=== PATIENT | male | born 1945 | race Caucasian/White ===

== ENCOUNTER → 2018-11-20 | Outpatient (CLI) | payer OTHER ==
[~2018-11-20] MED LIST: IOHEXOL-350 75 ML VIAL IV ONE
== END | disposition home or self-care (01) ==
LOC: RAH 13:54
PROVIDERS: ATTEND Internal Medicine Hematology & Oncology
DX: C79.51 Secondary malignant neoplasm of bone (principal); C61 Malignant neoplasm of prostate; K57.30 Diverticulosis of large intestine without perforation or abscess without bleeding; M51.36 Other intervertebral disc degeneration, lumbar region
CPT/HCPCS: 74177; Q9967

== ENCOUNTER 2019-08-12 05:41 | Inpatient (IN) | payer OTHER ==
[~2019-08-12] VITALS: Ht 177.8 cm; Wt 87.3 kg
[~2019-08-12 05:41] MED LIST changes: +AMPI500C12 PO; +CARV3.12 PO; -IOHEXOL-350 75 ML VIAL IV ONE; +NAPR-1023 PO; +OMEP40CA13 PO; +ONDA8TAB65 PO; +POTA20TA82 PO
[2019-08-12 06:06] LABS: BASOPHILS % (AUTO) 0.2 % (0.0-5.0); LYMPHOCYTES % (AUTO) 8.9 % (21.0-51.0); MEAN CORPUSCULAR HEMOGLOBIN 25.1 pg (27.0-33.0); MEAN CORPUSCULAR HGB CONC 30.8 g/dL (32.0-36.0); MEAN CORPUSCULAR VOLUME 81.4 fL (79-99); MONOCYTES % (AUTO) 6.5 % (3.0-13.0); NEUTROPHILS % (AUTO) 82.6 % (40.0-77.0); PLATELET COUNT (AUTO) 282 K/uL (130-400); RED BLOOD CELL COUNT(AUTO) 2.95 MIL/uL (4.50-6.20); RED CELL DISTRIBUTION WIDTH 16.2 % (11.0-15.5); WHITE BLOOD COUNT (AUTO) 6.2 K/uL (4.8-10.8)
[2019-08-12] MEDS ORDERED: MORPHINE SULFATE 2 MG/ML 1ML SYG ONE ×2 (06:12→13:46)
[2019-08-12 06:15] LABS: CREATININE 0.5 mg/dL (0.5-1.5); POTASSIUM 3.9 mmol/L (3.5-5.1)
[2019-08-12 06:15] LABS: APPEARANCE,URINE Clear (CLEAR); BILIRUBIN,URINE Negative (NEGATIVE); COLOR,URINE Yellow (YELLOW); GLUCOSE, URINE (UA) Negative (NEGATIVE); KETONES,URINE Negative (NEGATIVE); LEUKOCYTE ESTERASE ,URINE Large (NEGATIVE); NITRATE,URINE Positive (NEGATIVE); OCCULT BLOOD,URINE Negative (NEGATIVE); PH,URINE 8.5 (5.0-8.0); PROTEIN,URINE Negative (NEGATIVE)
[2019-08-12 06:16] LABS: INR 1.19 (0.85-1.15); PARTIAL THROMBOPLASTIN TIME 34.1 SEC (26.3-35.5); PROTHROMBIN TIME 12.8 SEC (9.6-11.6)
[2019-08-12 06:28] LABS: B-TYPE NATRIURETIC PEPTIDE 583 pg/mL (0-100)
[2019-08-12 06:29] LABS: ALBUMIN 1.7 g/dL (3.5-5.0); BILIRUBIN,TOTAL 0.3 mg/dL (0.2-1.0); TOTAL PROTEIN, SERUM 5.9 g/dL (6.0-8.3)
[2019-08-12] MEDS ORDERED: IOHEXOL 350 MG/ML 100ML INFUS..BTL IV ONE (07:20)
[2019-08-12] MEDS ORDERED: MORPHINE SULFATE 5 MG/ML VIAL ONE (07:37)
[2019-08-12] MEDS: SODIUM CHLORIDE 0.9% 1000ML 1,000 ML IV SCH ×3 (07:45→23:02)
[2019-08-12] MEDS ORDERED: ONDANSETRON HCL 4 MG/2 ML VIAL IVP PRN (07:45)
[2019-08-12 07:51] LABS: RBC,URINE 0-1 /HPF (0-1); SQUAMOUS EPITHELIAL CELL,UR 0-2 /HPF (0-2)
[2019-08-12 07:52] LABS: BACTERIA,URINE Many /HPF (None Seen)
[2019-08-12] MEDS: PANTOPRAZOLE 40 MG/VIAL IVP SCH (09:00)
[2019-08-12] MEDS ORDERED: SODIUM CHLORIDE 0.9% 1000ML 1,000 ML IV ONE (11:24)
[2019-08-12 16:00] VITALS: BP 126/66
[2019-08-12] MEDS: MORPHINE SULFATE 5 MG/ML VIAL IVP PRN ×2 (16:14→22:52)
[2019-08-12 19:30] VITALS: BP 100/65
[2019-08-13] VITALS (7 sets, daily range): BP systolic 123–155; BP diastolic 61–81
[2019-08-13] MEDS: MORPHINE SULFATE 5 MG/ML VIAL IVP PRN (06:28)
[2019-08-13 06:30] LABS: BASOPHILS % (AUTO) 0.7 % (0.0-5.0); EOSINOPHILS % (AUTO) 1.1 % (0.0-8.0); HEMATOCRIT 28.2 % (42-54); LYMPHOCYTES % (AUTO) 11.7 % (21.0-51.0); MEAN CORPUSCULAR HEMOGLOBIN 24.8 pg (27.0-33.0); MEAN CORPUSCULAR HGB CONC 29.8 g/dL (32.0-36.0); MEAN CORPUSCULAR VOLUME 83.2 fL (79-99); MONOCYTES % (AUTO) 7.5 % (3.0-13.0); NEUTROPHILS % (AUTO) 77.2 % (40.0-77.0); PLATELET COUNT (AUTO) 262 K/uL (130-400); RED BLOOD CELL COUNT(AUTO) 3.39 MIL/uL (4.50-6.20); RED CELL DISTRIBUTION WIDTH 16.1 % (11.0-15.5); WHITE BLOOD COUNT (AUTO) 5.5 K/uL (4.8-10.8)
[2019-08-13 06:39] LABS: CREATININE 0.5 mg/dL (0.5-1.5); POTASSIUM 3.8 mmol/L (3.5-5.1)
[2019-08-13] MEDS ORDERED: MORPHINE SULFATE 2 MG/ML 1ML SYG ONE (08:51)
[2019-08-13] MEDS: PANTOPRAZOLE 40 MG/VIAL IVP SCH (08:54)
[2019-08-13] MEDS: SODIUM CHLORIDE 0.9% 1000ML 1,000 ML IV SCH ×2 (08:59→21:35)
[2019-08-13] MEDS ORDERED: MORPHINE SULFATE 2 MG/ML 1ML SYG IM PRN (09:00)
--- NOTE | 2019-08-13 10:21 | NUR ---
DR. BREEN PAGED PT HAVING C/P STATES IT IS NOT CARDIAC IT IS METS TO THE LIVER. ORDERS ENTER FOR PAIN MANAGEMENT.
--- NOTE | 2019-08-13 11:29 | NUR ---
INITIAL Patient was transferred from [facility]. Emergency contacts are eze, [phone] and friend, Aristeo Torres, [phone]. Patient in agreement to return to facility. YAMEL/Choice form signed and placed in chart. WILL contacted Inga Young and she stated that patient will need new authorization if he returns. WILL sent updates to nursing facility for review. Pending eval and acceptance. DCP is [facility]. Addendum: 08/13/19 at 1134 by PJ CHEEMA SS Amended: Links added.
[2019-08-13] MEDS ORDERED: MORPHINE SULFATE 15 MG TABLET.SA PO PRN (12:15)
--- NOTE | 2019-08-13 16:50 | NUR ---
1635 gave patient IM Letter but he stated "i can not sign right now". I asked if he understood the form that i was giving him and he stated"yes". Jignesh Jones witnessed IM Letter being given.I FAXED IM Letter with note: patient not able to sign, Karen (Jignesh) signed IM Letter as witness. I placed IM Letter in chart under consent tab
[2019-08-13] MEDS: MORPHINE SULFATE 15 MG TABLET.SA PO PRN (23:32)
[2019-08-14] MEDS: MORPHINE SULFATE 2 MG/ML 1ML SYG IV PRN ×5 (02:22→21:55)
[2019-08-14 03:30] VITALS: BP 156/78
[2019-08-14 08:01] VITALS: BP 140/81
[2019-08-14] MEDS: SODIUM CHLORIDE 0.9% 1000ML 1,000 ML IV SCH ×2 (09:11→19:45)
--- NOTE | 2019-08-14 09:50 | NUR ---
TRANSFER FROM 4TH FLOOR . REPORT RECIEVED BY NURSE NOEMI. Borges RN PT AAO X 3 REVIEW PLAN OF CARE, AND CALL LIGHT AND FALL RISK , PT IS ABLE TO FOCUS WITH CARE.
[2019-08-14] MEDS: PANTOPRAZOLE 40 MG/VIAL IVP SCH (10:23)
[2019-08-14 11:47] VITALS: BP 150/50
--- NOTE | 2019-08-14 14:56 | NUR ---
CM Note: HNR approval CM spoke to Milagros borja/RADHA, pt has approval. EMS arranged and faxed for today. Primary nurse to call [facility] once pt ready to DC. Primary nurse aware. CM to cont to follow up.
[2019-08-14 16:00] VITALS: BP 156/70
[2019-08-14] MEDS: MORPHINE SULFATE 15 MG TABLET.SA PO PRN ×2 (16:05→23:54)
--- NOTE | 2019-08-14 17:02 | NUR ---
WOUND CARE STAFF HERE FOR WOUND CARE ASSESSMENT AND RECOMMENDATION. PT WAS TURNED AND LOWER BACK SITE, CLEANSE WITH THE SAINE AND APPLICATION AND COVER WIT THE ALLEVYN LIFE FORM ON. WOUND PICTURES DONE,
--- NOTE | 2019-08-14 17:05 | NUR ---
[facility] CONSULT PATIENT ASSESSED REQUESTED: PATIENT PRESENTS WITH STAGE II PRESSURE ULCER TO SACRUM; [facility] RECOMMENDATIONS SUBMITTED Addendum: 08/14/19 at 1706 by RICHARD BATISTA LVN LVN W Amended: Links added.
[2019-08-14] MEDS ORDERED: HONEY 1 APPL/ML TUBE TP PRN (17:15)
--- NOTE | 2019-08-14 17:45 | NUR ---
WOUND TO THE LOWER MID BACK , A STAGE TWO [id number] RECOMMANDATION OF MEDI HONEY AND ALLEVYN DAILY ORDER MEDIHONEY FOR APPLICATION . PT HAS A WAFFLE MATTRESS AND WILL BE TURNED Q 2HRS.
[2019-08-14 19:00] VITALS: BP 127/64
--- NOTE | 2019-08-14 20:12 | NUR ---
Nursing Note Paged Dr. Rice. For pt's pain. Pending call back
[2019-08-14 23:00] VITALS: BP 132/64
[2019-08-15] MEDS: SODIUM CHLORIDE 0.9% 1000ML 1,000 ML IV SCH ×2 (00:03→20:54)
[2019-08-15] MEDS: MORPHINE SULFATE 2 MG/ML 1ML SYG IV PRN ×5 (01:56→23:14)
[2019-08-15 03:00] VITALS: BP 141/65
[2019-08-15 07:30] VITALS: BP 130/64
[2019-08-15] MEDS: MORPHINE SULFATE 15 MG TABLET.SA PO PRN (08:49)
[2019-08-15] MEDS: PANTOPRAZOLE 40 MG/VIAL IVP SCH (08:50)
[2019-08-15 11:00] VITALS: BP 130/66
[2019-08-15] MEDS: IPRATROPIUM/ALBUTEROL SULFATE 3 ML SOLUTION IH PRN ×2 (11:10→18:50)
[2019-08-15] MEDS: ACETAMINOPHEN 325 MG TAB PO PRN (11:21)
[2019-08-15] MEDS: MORPHINE SULFATE 15 MG TABLET.SA PO SCH ×2 (12:26→20:05)
[2019-08-15 16:00] VITALS: BP 120/64
[2019-08-15 19:42] VITALS: BP 128/67
--- NOTE | 2019-08-15 21:30 | NUR ---
Nursing Note Pt being turned q2hrs
--- NOTE | 2019-08-15 23:00 | NUR ---
Nursing Note Pt refused to be turned at this time. Pt stating he is comfortable, doesn't want to be moved.
[2019-08-15 23:30] VITALS: BP 143/74
--- NOTE | 2019-08-16 00:30 | NUR ---
Nursing Note Pt is asleep. no complaints of pain or discomfort.
--- NOTE | 2019-08-16 02:15 | NUR ---
Nursing Note Pt resting comfortable, no complaints or concerns
--- NOTE | 2019-08-16 03:30 | NUR ---
Nursing Note Pt refused for us to turn him, informed him of the importance but he doesn't want to be moved.
[2019-08-16 03:59] VITALS: BP 169/77
--- NOTE | 2019-08-16 04:00 | NUR ---
Nursing Note Pt refused to swallow pill at this time pt only wants IV pain medications.
[2019-08-16] MEDS: MORPHINE SULFATE 2 MG/ML 1ML SYG IV PRN ×4 (04:02→20:55)
--- NOTE | 2019-08-16 06:04 | NUR ---
Nursing Note-Pt pain Pt refused to take the MS contin tablets, tried to reposition the pt but he refused to let me adjust him and nurse Lesley RN. Witnessed by Lesley RN to take pain medication even though pt states he is in pain and refuses to be readjusted. pt only wants IV medication but I informed the pt that he only has the MS contin to take at this time, I can't give him IV medication at this time. Pt stated "I want to be given something through the IV to knock me out, Call Dr. Felix and tell him now or call the ER doctor and tell them to give me something to knock me out now." Paged Dr. Liu-Pending call back
--- NOTE | 2019-08-16 06:34 | NUR ---
Nursing Note- Paged . Pt stating he is having chest pain radiating down both arms, and his legs and he doesn't want to be left alone. Pending call back.
[2019-08-16] MEDS: IPRATROPIUM/ALBUTEROL SULFATE 3 ML SOLUTION IH PRN ×2 (06:42→12:28)
[2019-08-16] MEDS: MORPHINE SULFATE 15 MG TABLET.SA PO SCH ×2 (07:28→16:25)
[2019-08-16 07:30] VITALS: BP 156/80
--- NOTE | 2019-08-16 08:00 | NUR ---
PT HAVING PAIN , AND REVIEW HIS PAIN MEDICATIONS WITH HIM,, PT . WAS ABLE TO FOCUS , HIS CARE PT HAS A WAFFLE MATTRESS , AND REVIEW THE TURNING CARE, PT STATED THAT FOR NOW , HE IS MOVING, UNTIL THE PAIN MEDICATION IS SOLVE .
[2019-08-16] MEDS: PANTOPRAZOLE SODIUM 40 MG TABLET.DR PO SCH (08:15)
[2019-08-16] MEDS: LEVOFLOXACIN 500 MG TABLET PO SCH (08:17)
--- NOTE | 2019-08-16 09:06 | NUR ---
DR. VILLANUEVA CALLED AND UDPATE OF PT . ANXIETY , AND PAIN MANGEMENT DURING THE NITE , UPDATE OF HIS PAIN STATUS . MORHPHINE 2 MG IV , GIVEN . PT IS AWARE OF PAIN MED IV GIVEN PAIN SCORE OF 8, GET HIGHTER WHEN MOVED ,, PT.PAIN SCORE 10 AND HIGHER WHEN MOVE STATED THAT HE IS NOT TO BE MOVED UNTIL HIS PAIN SCORE GETS BETTER , REVIEW PLAN OF CARE ,AND CALL LIGHT IN [facility].
[2019-08-16 11:00] VITALS: BP 175/78
--- NOTE | 2019-08-16 11:50 | NUR ---
DR. VILLANUEVA HERE . AND REVIEW PT STATUS AND TRASFER DISCHAARGE REPORT MEDICATION . PLACES IN THE , FOR MEDICATION SUMMARY WHILE PT WAS AT [facility] IN [place], [place]
[2019-08-16] MEDS: KETOROLAC TROMETHAMINE 30MG/ML IV PRN (12:55)
[2019-08-16] MEDS ORDERED: ABIR250T PO (13:00)
[2019-08-16] MEDS ORDERED: IBUP-2076 PO (13:00)
[2019-08-16] MEDS ORDERED: HYDR-4068 PO (13:00)
[2019-08-16] MEDS ORDERED: PRED5TAB PO (13:00)
[2019-08-16] MEDS ORDERED: MULT-1192 PO (13:00)
[2019-08-16] MEDS ORDERED: ALPR0.5T PO (13:00)
[2019-08-16] MEDS ORDERED: ZINC PO (13:00)
[2019-08-16] MEDS ORDERED: ASCO500T20 PO (13:00)
[2019-08-16] MEDS ORDERED: DOCU100T PO (13:00)
[2019-08-16] MEDS ORDERED: CLON0.1T PO ×2 (13:00)
[2019-08-16] MEDS ORDERED: SERT50TA PO (13:00)
[2019-08-16] MEDS ORDERED: LACT10SO9 PO (13:00)
[2019-08-16] MEDS ORDERED: IPRA3AMP24 IH (13:00)
[2019-08-16 13:21] LABS: HEMATOCRIT 30.3 % (42-54); MEAN CORPUSCULAR HEMOGLOBIN 25.2 pg (27.0-33.0); MEAN CORPUSCULAR HGB CONC 30.7 g/dL (32.0-36.0); MEAN CORPUSCULAR VOLUME 82.1 fL (79-99); PLATELET COUNT (AUTO) 249 K/uL (130-400); RED BLOOD CELL COUNT(AUTO) 3.69 MIL/uL (4.50-6.20); RED CELL DISTRIBUTION WIDTH 15.9 % (11.0-15.5); WHITE BLOOD COUNT (AUTO) 8.3 K/uL (4.8-10.8)
[2019-08-16] MEDS ORDERED: GUAI100S13 PO (13:21)
[2019-08-16] MEDS ORDERED: ONDA-104 PO (13:21)
[2019-08-16] MEDS ORDERED: ACET-2247 PO (13:21)
[2019-08-16] MEDS ORDERED: FAMO20TA8 PO (13:21)
[2019-08-16] MEDS ORDERED: IBUP-2784 PO (13:21)
[2019-08-16] MEDS ORDERED: CLONIDINE HCL 0.1 MG TABLET PO PRN (13:30)
[2019-08-16] MEDS ORDERED: ACETAMINOPHEN 325 MG TAB PO PRN (13:30)
[2019-08-16] MEDS ORDERED: ONDANSETRON 4 MG TABLET PO PRN (13:30)
[2019-08-16] MEDS ORDERED: GUAIFENESIN SUGAR-FREE 100 MG/5 ML UDCUP PO PRN (13:30)
[2019-08-16] MEDS ORDERED: LACTULOSE 20 GM/30 ML UDCUP PO PRN (13:30)
[2019-08-16] MEDS ORDERED: HYDROCODONE/ACETAMINOPHEN 10/325 MG TAB PO PRN (13:30)
[2019-08-16] MEDS ORDERED: IBUPROFEN 400 MG TABLET PO PRN (13:30)
[2019-08-16] MEDS ORDERED: IPRATROPIUM/ALBUTEROL SULFATE 3 ML SOLUTION IH SCH (14:00)
[2019-08-16 14:02] LABS: EOSINOPHILS % (MANUAL) 1 % (1-6); LYMPHOCYTES % (MANUAL) 6 % (22-44); MONOCYTES % (MANUAL) 4 % (2-9); SEGMENTED NEUTROPHILS % 89 % (40-70)
[2019-08-16 14:04] LABS: MAN.DIFF COMMENT-IMPRESSION MANUAL DIFFERENTIAL
[2019-08-16 14:05] LABS: PLATELET MORPHOLOGY COMMENT ADEQUATE
[2019-08-16 16:00] VITALS: BP 119/59
--- NOTE | 2019-08-16 16:00 | NUR ---
PT DOING BETTER , STATED THAT HE FEELS BETTER WITH THE TORADOL MEDICATION THAT WAS STARTED
[2019-08-16] MEDS: IPRATROPIUM/ALBUTEROL SULFATE 3 ML SOLUTION IH SCH ×2 (19:01→23:50)
[2019-08-16] MEDS: SODIUM CHLORIDE 0.9% 1000ML 1,000 ML IV SCH ×2 (19:06→21:45)
[2019-08-16 20:00] VITALS: BP 109/60
[2019-08-16] MEDS: PREDNISONE 5 MG TABLET PO SCH (20:53)
[2019-08-16] MEDS: CLONIDINE HCL 0.1 MG TABLET PO SCH (21:00)
[2019-08-17] VITALS: BP 102/50
[2019-08-17] MEDS: MORPHINE SULFATE 15 MG TABLET.SA PO SCH ×3 (02:29→16:55)
--- NOTE | 2019-08-17 02:33 | NUR ---
PT REFUSED LACTULOSE
[2019-08-17 03:49] VITALS: BP 113/55
[2019-08-17] MEDS: KETOROLAC TROMETHAMINE 30MG/ML IV PRN ×2 (05:56→13:06)
[2019-08-17] MEDS: IPRATROPIUM/ALBUTEROL SULFATE 3 ML SOLUTION IH SCH ×4 (06:38→23:55)
[2019-08-17] MEDS: ABIRATERONE ACETATE 250 MG PO SCH (07:30)
[2019-08-17] MEDS: SODIUM CHLORIDE 0.9% 1000ML 1,000 ML IV SCH ×3 (07:45→21:50)
[2019-08-17 08:32] VITALS: BP 120/51
[2019-08-17] MEDS: CLONIDINE HCL 0.1 MG TABLET PO SCH (09:00)
[2019-08-17] MEDS: PANTOPRAZOLE SODIUM 40 MG TABLET.DR PO SCH (09:35)
[2019-08-17] MEDS: FAMOTIDINE 20MG TAB 20 MG TAB PO SCH (09:35)
[2019-08-17 11:35] VITALS: BP 133/84
[2019-08-17] MEDS: SERTRALINE HCL 50 MG TABLET PO SCH (11:55)
[2019-08-17] MEDS: LEVOFLOXACIN 500 MG TABLET PO SCH (11:55)
[2019-08-17] MEDS: PREDNISONE 5 MG TABLET PO SCH ×2 (11:55→21:48)
[2019-08-17] MEDS: MULTIVITAMIN TABLET PO SCH (11:55)
[2019-08-17] MEDS: ASCORBIC ACID 500 MG TAB PO SCH (11:55)
[2019-08-17] MEDS: ZINC SULFATE 220 CAPSULE PO SCH (11:55)
[2019-08-17] MEDS: ALPRAZOLAM 0.5 MG TABLET PO PRN ×2 (12:03→21:48)
--- NOTE | 2019-08-17 14:00 | NUR ---
cm note spoke to pt and states he had concerns regarding returning to [facility], and wanted this cm to call [facility] and [facility] regarding possible admission. call made to [facility], and per Marion, states no bed available. states they do have a bed at [facility], but per pt states he prefers [facility]. and also called [facility], and per Shana they will not accept pts at this time that came from another snf/ detention. updated pt on above information, and now states that he is willling to go to [facility], but states is in pain. call made to Marion, and states pt is approved through tuesday, and can accept him. call made to Dr Liu and made aware of above, and did give orders. updated primary nurse Sun
[2019-08-17 20:00] VITALS: BP 136/72
[2019-08-18] VITALS (7 sets, daily range): BP systolic 119–159; BP diastolic 60–83
[2019-08-18] MEDS: MORPHINE SULFATE 15 MG TABLET.SA PO SCH ×3 (00:48→16:00)
[2019-08-18] MEDS: IPRATROPIUM/ALBUTEROL SULFATE 3 ML SOLUTION IH SCH ×4 (06:34→23:25)
[2019-08-18] MEDS: ABIRATERONE ACETATE 250 MG PO SCH (07:30)
[2019-08-18] MEDS: KETOROLAC TROMETHAMINE 30MG/ML IV PRN (07:56)
[2019-08-18] MEDS: PREDNISONE 5 MG TABLET PO SCH ×2 (10:09→21:15)
[2019-08-18] MEDS: FAMOTIDINE 20MG TAB 20 MG TAB PO SCH (10:09)
[2019-08-18] MEDS: ZINC SULFATE 220 CAPSULE PO SCH (10:09)
[2019-08-18] MEDS: PANTOPRAZOLE SODIUM 40 MG TABLET.DR PO SCH (10:10)
[2019-08-18] MEDS: MULTIVITAMIN TABLET PO SCH (10:10)
[2019-08-18] MEDS: CLONIDINE HCL 0.1 MG TABLET PO SCH ×2 (10:10→21:00)
[2019-08-18] MEDS: DOCUSATE SODIUM 100 MG CAP PO PRN (10:11)
[2019-08-18] MEDS: MORPHINE SULFATE 2 MG/ML 1ML SYG IV PRN ×3 (10:11→21:16)
[2019-08-18] MEDS: SODIUM CHLORIDE 0.9% 1000ML 1,000 ML IV SCH ×2 (13:45→23:45)
--- NOTE | 2019-08-18 17:10 | NUR ---
[facility] CALLED TO GIVE REPORT TO [facility]. SPOKE TO SAM SHARMA. INFORMED THAT PATIENT HAS NOT HAD A BOWEL MOVEMENT SINCE 08/11/2019. INFORMED THAT I HAVE GIVEN PRN LACTULOSE AND DULCOLAX. SAM SHARMA TOLD ME THAT THE DIRECTOR ON NURSING WILL NOT ACCEPT PATIENT IF NO RECENT BOWEL MOVEMENT. SAM SHAMRA STATED TO CALL EMS WHEN PATIENT HAS BOWEL MOVEMENT.
[2019-08-18] MEDS: LEVOFLOXACIN 500 MG TABLET PO SCH ×2 (17:16→17:31)
[2019-08-18] MEDS: ASCORBIC ACID 500 MG TAB PO SCH (17:31)
[2019-08-18] MEDS: SERTRALINE HCL 50 MG TABLET PO SCH (17:31)
--- NOTE | 2019-08-18 18:00 | NUR ---
DR. NAVA SPOKE TO MD TO REPORT THAT PRN LAXATIVES GIVEN HAVE BEEN GIVEN STARTING TODAY, BUT PATIENT MAY NEED AN ALTERNATE MEDICATION IN ORDER TO FACILITATE BOWEL MOVEMENT. INFORMED THAT [facility] IS READY TO ACCEPT PATIENT SOON BOWEL MOVEMENT OCCURS, SO IF PATIENT IS STILL HERE TOMORROW ITS BECAUSE NOT BOWEL MOVEMENT HAS OCCURRED. ORDERS GIVEN VIA TELEPHONE/READBACK.
[2019-08-18] MEDS ORDERED: BISACODYL 10 MG SUPP.RECT RC ONE (18:18)
[2019-08-18] MEDS ORDERED: BISACODYL 10 MG SUPP.RECT RC SCH (19:20)
--- NOTE | 2019-08-18 19:30 | NUR ---
PENDING DISCHARGE INFORMED ONCOMING SHIFT NURSE THAT PATIENT IS TO BE DISCHARGED ONCE BOWEL MOVEMENT OCCURS. INFORMED I HAVE ALREADY GIVEN REPORT TO SAM SHARMA AT [facility] AND THAT [facility] EMS IS TO BE CALLED WHEN PATIENT READY TO LEAVE.
--- NOTE | 2019-08-18 20:45 | NUR ---
BOWEL MOVEMENT PATIENT HAD A BOWEL MOVEMENT. CALLED [facility] TO REPORT EMS WILL BE CALLED TO TRANSFER PATIENT TODAY. NO ANSWER AT THIS TIME [phone].
--- NOTE | 2019-08-18 20:54 | NUR ---
[facility] CALL[facility] AND NOTIFIED THAT PATIENT [facility].
--- NOTE | 2019-08-18 21:25 | NUR ---
JUHI ENCINAS SPOKE WITH DR. LUIS. INFORMED DR THAT PATIENT IS REFUSING TO GO TO [facility]. SAID TO HOLD D/C ORDERS FOR TONIGHT AND WILL COME SEE THE PATIENT TOMORROW.
--- NOTE | 2019-08-18 21:27 | NUR ---
INVESTMENT ASSOCIATE INFORMED INVESTMENT ASSOCIATE OF PATIENT REFUSING TO GO TO [facility]. INFORMED HER THAT DR. LUIS WILL HOLD DC ORDERS FOR TONIGHT AND COME TO SEE THE PATIENT TOMORROW AM.
--- NOTE | 2019-08-18 21:29 | NUR ---
[facility] CANCEL SPOKE WITH [facility] TO CANCEL EMS SERVICE FOR TONIGHT.
--- NOTE | 2019-08-18 23:42 | NUR ---
PT REFUSING TO BE CHANGED. PT HAS A LOOSE SOILED BM THAT HAS LEAKED ON TO THE BED SHEETS AND A PEPE THAT NEEDS TO BE EMPTIED. SEVERAL ATTEMPTS HAVE BEEN MADE TO CHANGE PATIENT AND HE STATES HE "WANTS TO BE LEFT IN HIS SHIT". CALLED RESIDENTIAL GAS HEAT TECHNICIAN TO INFORM HER OF PATIENT'S REFUSAL TO BE CHANGED.
--- NOTE | 2019-08-19 | NUR ---
REFUSED PO MEDS PT REFUSING PO MED THAT IS DUE PER MAR. DOES NOT WANT ANYTHING BY MOUTH AT THIS TIME. NO REPORTS OF PAIN. NO S/S OF DISTRESS.
--- NOTE | 2019-08-19 00:24 | NUR ---
FOLLOW UP TOLD PT WE NEEDED TO CHANGE HIM. PT CONTINUES TO REFUSE. SAYS HE IS COLD AND DOES NOT WANT TO MOVE. ADJUSTED THERMOSTAT FROM 72 TO 78 TO MAKE THE ROOM WARMER. WILL CONTINUE TO ATTEMPT TO HAVE PT CHANGED.
--- NOTE | 2019-08-19 01:08 | NUR ---
CONTINUES TO REFUSE TO BE CHANGED. PATIENT CONTINUES TO LAY IN HIS SOILED BRIEF AND BED SHEETS. HE DOES NOT WANT TO BE CHANGED. WILL CONTINUE MAKING ATTEMPTS TO CHANGE PT
--- NOTE | 2019-08-19 01:22 | NUR ---
REFUSING TO BE CHANGED PATIENT REFUSES TO BE CHANGED. GAVE PT HEATING PADS TO WARM UP PATIENT AND HE SAID "LEAVE ME ALONE". REFUSING ANY EDUCATION AT THIS TIME. WILL CONTINUE TO ATTEMPT TO CHANGE HIM.
[2019-08-19] MEDS: MORPHINE SULFATE 2 MG/ML 1ML SYG IV PRN ×4 (03:16→16:51)
--- NOTE | 2019-08-19 03:24 | NUR ---
BATH GAVE PATIENT A BATH, PROVIDED ERIC CARE. PEPE TUBING/BAG COVERED IN FECES. PT STATES HE DOES NOT WANT THE BAG TO BE CHANGED OUT. HE "WILL NOT GO THROUGH ANOTHER THING TODAY". PT CRYING DURING BATH. PROVIDED PAIN MEDICATION PRIOR TO BATH. REMOVED SOILED ALLEVYN PAD. CLEANED AREA. APPLIED MEDIHONEY TO COCCYX ULCER AND PLACED NEW LARGE ALLEVYN PAD. BED LINEN CHANGED, CLEAN BRIEF APPLIED. BED LOCKED IN LOWEST POSITION, CALL LIGHT WITHIN REACH.
[2019-08-19] MEDS: KETOROLAC TROMETHAMINE 30MG/ML IV PRN (03:56)
[2019-08-19 04:00] VITALS: BP 158/83
[2019-08-19] MEDS: IPRATROPIUM/ALBUTEROL SULFATE 3 ML SOLUTION IH SCH ×4 (06:26→23:14)
[2019-08-19] MEDS: ABIRATERONE ACETATE 250 MG PO SCH (07:30)
[2019-08-19] MEDS: MORPHINE SULFATE 15 MG TABLET.SA PO SCH ×4 (08:00→20:35)
[2019-08-19 08:44] VITALS: BP 161/87
[2019-08-19] MEDS: SODIUM CHLORIDE 0.9% 1000ML 1,000 ML IV SCH ×2 (09:45→19:45)
--- NOTE | 2019-08-19 10:00 | NUR ---
cm note discussed with primary nurse Arabella, regarding EMs order, states that when she called EMS, they mentioned that the pt may still end up with some charges, but EMS was still going to machine operator hop picker pt for transfer, but, per film processing shift supervisor, pt. was refusing to go at that time. call was made to Marion gupta at [facility]. and she states that pt, can not be admitted to facility today, will require to resubmit for authorization again on tuesday.
[2019-08-19] MEDS: CLONIDINE HCL 0.1 MG TABLET PO SCH ×2 (10:06→20:35)
[2019-08-19] MEDS: SERTRALINE HCL 50 MG TABLET PO SCH (10:07)
[2019-08-19] MEDS: PANTOPRAZOLE SODIUM 40 MG TABLET.DR PO SCH (10:07)
[2019-08-19] MEDS: PREDNISONE 5 MG TABLET PO SCH ×2 (10:07→20:34)
[2019-08-19] MEDS: MULTIVITAMIN TABLET PO SCH (10:07)
[2019-08-19] MEDS: ASCORBIC ACID 500 MG TAB PO SCH (10:07)
[2019-08-19] MEDS: ALPRAZOLAM 0.5 MG TABLET PO PRN ×2 (10:07→20:35)
[2019-08-19] MEDS: DOCUSATE SODIUM 100 MG CAP PO PRN (10:07)
[2019-08-19] MEDS: FAMOTIDINE 20MG TAB 20 MG TAB PO SCH (10:07)
[2019-08-19] MEDS: ZINC SULFATE 220 CAPSULE PO SCH (10:07)
[2019-08-19 13:21] VITALS: BP 149/75
[2019-08-19] MEDS: LEVOFLOXACIN 500 MG TABLET PO SCH (15:00)
--- NOTE | 2019-08-19 15:57 | NUR ---
cm note met with patient and states he does not want to go to [facility], wants to go to [facility]. radha Navarro RN present, referral sent to [facility].
[2019-08-19 16:53] VITALS: BP 134/69
--- NOTE | 2019-08-19 18:01 | NUR ---
cm note spoke to Marion gupta from [facility] and informed that pt now wishes to go [facility], informed referral was faxed with [facility], and states will evaluate and let cm know.
[2019-08-19 20:21] VITALS: BP 134/72
[2019-08-19] MEDS: SENNOSIDES 8.6 MG TABLET PO SCH (20:35)
[2019-08-19 23:41] VITALS: BP 141/77
[2019-08-20] MEDS: MORPHINE SULFATE 2 MG/ML 1ML SYG IV PRN (01:34)
[2019-08-20 03:33] VITALS: BP 108/60
[2019-08-20] MEDS: MORPHINE SULFATE 15 MG TABLET.SA PO SCH ×4 (04:06→21:45)
[2019-08-20] MEDS: SODIUM CHLORIDE 0.9% 1000ML 1,000 ML IV SCH ×2 (05:45→21:47)
[2019-08-20] MEDS: IPRATROPIUM/ALBUTEROL SULFATE 3 ML SOLUTION IH SCH ×3 (06:12→18:31)
[2019-08-20] MEDS: ABIRATERONE ACETATE 250 MG PO SCH (06:42)
[2019-08-20 07:30] VITALS: BP 119/58
[2019-08-20] MEDS: SENNOSIDES 8.6 MG TABLET PO SCH ×2 (08:06→21:45)
[2019-08-20] MEDS: MULTIVITAMIN TABLET PO SCH (08:06)
[2019-08-20] MEDS: ASCORBIC ACID 500 MG TAB PO SCH (08:06)
[2019-08-20] MEDS: FAMOTIDINE 20MG TAB 20 MG TAB PO SCH (08:07)
[2019-08-20] MEDS: PANTOPRAZOLE SODIUM 40 MG TABLET.DR PO SCH (08:07)
[2019-08-20] MEDS: LEVOFLOXACIN 500 MG TABLET PO SCH (08:07)
[2019-08-20] MEDS: SERTRALINE HCL 50 MG TABLET PO SCH (08:09)
[2019-08-20] MEDS: CLONIDINE HCL 0.1 MG TABLET PO SCH ×2 (08:09→21:00)
[2019-08-20] MEDS: ZINC SULFATE 220 CAPSULE PO SCH (08:09)
[2019-08-20] MEDS: PREDNISONE 5 MG TABLET PO SCH ×2 (08:10→21:45)
[2019-08-20 11:00] VITALS: BP 108/64
[2019-08-20] MEDS: ACETAMINOPHEN 325 MG TAB PO PRN (11:44)
[2019-08-20] MEDS ORDERED: ACETAMINOPHEN 325 MG TAB PO PRN (12:00)
--- NOTE | 2019-08-20 12:00 | NUR ---
BARRIERS TO DISCHARGE RECED CALL THIS AM FROM BELTRAN AT [facility] RE DISCHARGE TO [facility]- NOT POSSIL, NOT TAKING PATIENTS. ADVISED MR. LINDQUIST AT BEDSIDE . PATIENT STATED HE WOULD GO TO [facility] IF THAT WAS HIS ONLY OPTION. CALL TO DR. VILLANUEVA, ORDERS REC'D FOR DISCHARGE AND ENTERED. AT TIME OF ENTERING ORDER, PRIMARY RN NOTIFIED MD OF TEMP SPIKE AND PATIENT SEEN AT BEDSIDE BY RN, DR. VILLANUEVA, AND CM. INCOHWEST AND GREG, HOWEVER HE MADE IT CLEAR THAT HIS INTENTIONS ARE TO KEEP FIGHTING HIS CANCER AND HIS ILLNESS. ORDERS TO CANCEL DISCHARGE RECD FROM DR. VILLANUEVA. CALL TO [facility] TO NOTIFITierra OF [facility]. STATES SHE WOULD FOLLOW UP TOMORROW RE ACCEPTANCE. Addendum: 08/21/19 at 0927 by VANESSA GRAY RN CM Amended: Links added.
--- NOTE | 2019-08-20 12:00 | NUR ---
PRIMARY MD DR. VILLANUEVA IN TO SEE PATIENT. NEW ORDERS RECEIVED AND CARRIED OUT.
[2019-08-20 12:32] LABS: MEAN CORPUSCULAR HEMOGLOBIN 24.9 pg (27.0-33.0); MEAN CORPUSCULAR VOLUME 83.1 fL (79-99); PLATELET COUNT (AUTO) 211 K/uL (130-400); RED BLOOD CELL COUNT(AUTO) 3.25 MIL/uL (4.50-6.20); RED CELL DISTRIBUTION WIDTH 16.8 % (11.0-15.5)
[2019-08-20 12:42] LABS: CREATININE 0.6 mg/dL (0.5-1.5); POTASSIUM 3.4 mmol/L (3.5-5.1)
[2019-08-20 12:56] LABS: ALBUMIN 1.7 g/dL (3.5-5.0); BILIRUBIN,TOTAL 0.4 mg/dL (0.2-1.0); TOTAL PROTEIN, SERUM 5.5 g/dL (6.0-8.3)
[2019-08-20] MEDS: ZOSYN 3.375GM+NS 50ML 50 ML IV SCH ×2 (13:45→21:44)
[2019-08-20 14:07] LABS: BAND NEUTROPHILS % (MANUAL) 3 % (0-2); EOSINOPHILS % (MANUAL) 2 % (1-6); LYMPHOCYTES % (MANUAL) 11 % (22-44); MAN.DIFF COMMENT-IMPRESSION MANUAL DIFFERENTIAL; MONOCYTES % (MANUAL) 7 % (2-9); PLATELET MORPHOLOGY COMMENT ADEQUATE; SEGMENTED NEUTROPHILS % 77 % (40-70)
[2019-08-20 16:00] VITALS: BP 109/63
[2019-08-20 20:00] VITALS: BP 94/49
[2019-08-21] VITALS (7 sets, daily range): BP systolic 91–108; BP diastolic 50–59
[2019-08-21] MEDS: ALPRAZOLAM 0.5 MG TABLET PO PRN (00:41)
[2019-08-21] MEDS: IPRATROPIUM/ALBUTEROL SULFATE 3 ML SOLUTION IH SCH ×5 (00:42→23:17)
[2019-08-21] MEDS: SODIUM CHLORIDE 0.9% 1000ML 1,000 ML IV SCH ×4 (01:45→22:11)
[2019-08-21] MEDS: ZOSYN 3.375GM+NS 50ML 50 ML IV SCH ×3 (04:33→22:06)
[2019-08-21] MEDS: MORPHINE SULFATE 15 MG TABLET.SA PO SCH ×3 (04:34→22:11)
[2019-08-21 05:35] LABS: HEMATOCRIT 24.7 % (42-54); MEAN CORPUSCULAR HEMOGLOBIN 25.3 pg (27.0-33.0); MEAN CORPUSCULAR HGB CONC 30.4 g/dL (32.0-36.0); MEAN CORPUSCULAR VOLUME 83.2 fL (79-99); PLATELET COUNT (AUTO) 189 K/uL (130-400); RED BLOOD CELL COUNT(AUTO) 2.97 MIL/uL (4.50-6.20); RED CELL DISTRIBUTION WIDTH 16.7 % (11.0-15.5); WHITE BLOOD COUNT (AUTO) 4.5 K/uL (4.8-10.8)
[2019-08-21 05:46] LABS: BAND NEUTROPHILS % (MANUAL) 6 % (0-2); LYMPHOCYTES % (MANUAL) 7 % (22-44); MAN.DIFF COMMENT-IMPRESSION MANUAL DIFFERENTIAL; METAMYELOCYTES % 1 % (0-0); MONOCYTES % (MANUAL) 5 % (2-9); SEGMENTED NEUTROPHILS % 81 % (40-70)
[2019-08-21 05:48] LABS: CREATININE 0.6 mg/dL (0.5-1.5); POTASSIUM 3.4 mmol/L (3.5-5.1)
[2019-08-21] MEDS: ABIRATERONE ACETATE 250 MG PO SCH (07:30)
[2019-08-21] MEDS: LEVOFLOXACIN 500 MG TABLET PO SCH (09:40)
[2019-08-21] MEDS: FAMOTIDINE 20MG TAB 20 MG TAB PO SCH (09:40)
[2019-08-21] MEDS: SENNOSIDES 8.6 MG TABLET PO SCH ×2 (09:40→22:07)
[2019-08-21] MEDS: PANTOPRAZOLE SODIUM 40 MG TABLET.DR PO SCH (09:42)
[2019-08-21] MEDS: PREDNISONE 5 MG TABLET PO SCH ×2 (09:42→22:08)
[2019-08-21] MEDS: ZINC SULFATE 220 CAPSULE PO SCH (09:42)
[2019-08-21] MEDS: SERTRALINE HCL 50 MG TABLET PO SCH (09:42)
[2019-08-21] MEDS: CLONIDINE HCL 0.1 MG TABLET PO SCH ×2 (09:42→21:00)
[2019-08-21] MEDS: MULTIVITAMIN TABLET PO SCH (09:51)
[2019-08-21] MEDS: ASCORBIC ACID 500 MG TAB PO SCH (09:52)
[2019-08-21] MEDS: KETOROLAC TROMETHAMINE 30MG/ML IV PRN (09:58)
--- NOTE | 2019-08-21 12:30 | NUR ---
DR. VILLANUEVA IN TO SEE PT. NO PLANS TO DISCHARGE TODAY,NOT UNTIL BLOOD AND URINE CULTURES RESULTS ARE BACK.
--- NOTE | 2019-08-21 13:01 | NUR ---
CM Note: HNR acceptance CM spoke to Marion Kevin, pt has approval and acceptance, received PASRR and Covid19 Post Acute Assessment. EMS arranged and faxed for today, primary nurse to call [facility] once pt ready to DC. Primary nurse aware. CM to cont to follow up.
[2019-08-21] MEDS ORDERED: MORPHINE SULFATE 2 MG/ML 1ML SYG ONE (14:51)
[2019-08-21] MEDS: MORPHINE SULFATE 2 MG/ML 1ML SYG IV PRN (14:53)
[2019-08-21] MEDS ORDERED: KETOROLAC TROMETHAMINE 30MG/ML IVP PRN (15:00)
[2019-08-21] MEDS ORDERED: MORPHINE SULFATE 2 MG/ML 1ML SYG IVP PRN (15:00)
[2019-08-21] MEDS ORDERED: PHARMACY COMMUNICATION MISC SCH (15:30)
--- NOTE | 2019-08-21 16:00 | NUR ---
[facility] CONSULT PATIENT ASSESSED REQUESTED: PATIENT PRESENTS WITH STAGE II PRESSURE ULCER TO SACRUM; [facility] RECOMMENDATIONS SUBMITTED. Addendum: 08/22/19 at 0801 by RICHARD BATISTA LVN LVN W Amended: Links added.
--- NOTE | 2019-08-21 16:11 | NUR ---
Nutrition screen based on LOS x 9 days. Pt. on Regular diet. Pt. reports poor p.o.intake due to chewing difficulty and not liking the food sent. Food preferences obtained. Pt. states needs soft/chopped foods due to chewing difficulty. Spoke with pt. regarding nutritional supplementation with Ensure and pt. agreed to try. Labs reviewed(Alb 1.7, BG 132). SR-12, Lowe back/Coccyx ulcer. Pt. with BLE edema. LBM: 08/20/2019. BMI: 27.6, normal for age. Pt. pending transfer to [facility]. Recommendations: 1) Rec. Mech Soft Finely Chopped diet. 2) Rec. Alexander Ensure BID with B'fast and dinner meals. 3) Continue to monitor pt's nutritional status. 4) Consult RD as nutrition concerns arise. Addendum: 08/21/19 at [address] Amended: Links added.
--- NOTE | 2019-08-21 17:00 | NUR ---
DRESSING CHANGED TO WOUND TO COCCYX AREA, AREA CLEANED WITH NS, PAT DRIED, APPLIED MEDIHONEY AND COVERED WITH ALLEVYN DRESSING.
[2019-08-21] MEDS: PHARMACY COMMUNICATION MISC SCH ×3 (17:30→23:30)
[2019-08-22] VITALS: BP 95/50
[2019-08-22] MEDS: PHARMACY COMMUNICATION MISC SCH ×5 (02:30→14:30)
[2019-08-22 04:32] VITALS: BP 106/57
[2019-08-22] MEDS: MORPHINE SULFATE 15 MG TABLET.SA PO SCH ×2 (05:12→13:27)
[2019-08-22] MEDS: ZOSYN 3.375GM+NS 50ML 50 ML IV SCH ×2 (05:12→13:57)
[2019-08-22] MEDS: IPRATROPIUM/ALBUTEROL SULFATE 3 ML SOLUTION IH SCH (06:24)
[2019-08-22 07:30] VITALS: BP 124/56
[2019-08-22] MEDS: ABIRATERONE ACETATE 250 MG PO SCH (07:30)
[2019-08-22] MEDS: FAMOTIDINE 20MG TAB 20 MG TAB PO SCH (09:00)
[2019-08-22] MEDS: SODIUM CHLORIDE 0.9% 1000ML 1,000 ML IV SCH (09:50)
[2019-08-22 10:12] VITALS: BP 124/56
[2019-08-22] MEDS: MULTIVITAMIN TABLET PO SCH (10:12)
[2019-08-22] MEDS: CLONIDINE HCL 0.1 MG TABLET PO SCH (10:12)
[2019-08-22] MEDS: PANTOPRAZOLE SODIUM 40 MG TABLET.DR PO SCH (10:12)
[2019-08-22] MEDS: PREDNISONE 5 MG TABLET PO SCH (10:12)
[2019-08-22] MEDS: SENNOSIDES 8.6 MG TABLET PO SCH (10:12)
[2019-08-22] MEDS: LEVOFLOXACIN 500 MG TABLET PO SCH (10:12)
[2019-08-22] MEDS: ASCORBIC ACID 500 MG TAB PO SCH (10:12)
[2019-08-22] MEDS: ZINC SULFATE 220 CAPSULE PO SCH (10:13)
[2019-08-22] MEDS: SERTRALINE HCL 50 MG TABLET PO SCH (10:13)
--- NOTE | 2019-08-22 10:25 | NUR ---
Spoke with Dr. Liu regarding discharge planning. Reported afebrile overnight and this morning, potassium level of 3.5. Per Dr. Liu can be discharged today and no need to replace potassium as falls within patient's baseline potassium level.
--- NOTE | 2019-08-22 13:48 | NUR ---
Provided report to Ruthie Sewell LVN at [facility]. Contacted [facility] EMS services for transport.
--- NOTE | 2019-08-22 16:07 | NUR ---
Discharge instructions and transfer documents provided to patient and EMS personnel. Patient had reservations regarding returning to [facility]. Patient notified that at this time, his treatment plan and care were completed at this facility and that other SNF's were not accepting new patients to prevent spread of coronavirus. mobility architect manager called to assist with information regarding transfer of care to [facility].
--- NOTE | 2019-08-22 16:42 | NUR ---
Called to bedside by RN- EMS has arrived, patient declining to leave for HNR with EMS EMS had been at bedside for 15 mins. This case CM explained to patient that he was not going to be able to go to his first choice, [facility], because they are not accepting patients at this time, and HNR is....Advised him there is NO guarantee of being safe from infection no matter where he goes but that all facilities are following precautions. Patient states he wants it on the record that he was very disappointed in HNR that last time he was there and that he may want to leave - he will give them a few days- and that he wants the right to call his doctor and explain things if 'the bomb drops and things go south'. This CM asked patient to give HNR a chance to give him great care this time around and regain his trust. Patient agreed to go with EMS only if this conversation was documented and sent to [facility] administration so it is on record that he is going to [facility] with reservations. This CM promised to document his worries in the chart and to fax this note to [facility] this evening and to follow up with [facility] in am. Patient finally agreed to go. Was reminded of his rights by CM, RN, and EMS to ask for physician to be contacted at the facility if he feels change in his condition. total time by EMS at bedside > 30 mins Addendum: 08/22/19 at 1700 by VANESSA GRAY RN CM Amended: Links added.
--- NOTE | 2019-08-22 16:42 | NUR ---
CALL MADE TO DR. VILLANUEVA TO ADVISE HIM OF PATIENTS RELUCTANCE BUT EVENTUAL AGREEMENT TO GO TO FACILITY, NO ANSWER VOICE MAIL LEFT
== END 2019-08-22 16:40 | DRG 871 ==
LOC: EDH 05:41 → EDHIP 07:06 → OBSVTOIN 07:06 → 4DH 14:46 → 3DH 08-14 09:49
PROVIDERS: ADMIT Internal Medicine Hematology & Oncology; ATTEND Internal Medicine Hematology & Oncology
PROC: 30233N1 Transfusion of Nonautologous Red Blood Cells into Peripheral Vein, Percutaneous Approach (ICD-10-PCS; principal; 2019-08-12)
DX: A41.9 Sepsis, unspecified organism (principal); E43 Unspecified severe protein-calorie malnutrition; G93.40 Encephalopathy, unspecified; J44.1 Chronic obstructive pulmonary disease with (acute) exacerbation; N39.0 Urinary tract infection, site not specified; C79.51 Secondary malignant neoplasm of bone; C78.7 Secondary malignant neoplasm of liver and intrahepatic bile duct; R64 Cachexia; G89.3 Neoplasm related pain (acute) (chronic); E86.0 Dehydration; I25.10 Atherosclerotic heart disease of native coronary artery without angina pectoris; C61 Malignant neoplasm of prostate; I50.9 Heart failure, unspecified; N13.9 Obstructive and reflux uropathy, unspecified; D63.8 Anemia in other chronic diseases classified elsewhere; Z68.27 Body mass index [BMI] 27.0-27.9, adult; Z92.21 Personal history of antineoplastic chemotherapy; Z88.7 Allergy status to serum and vaccine
CPT/HCPCS: 36415; 71045; 71275; 80048; 80053; 81001; 82550; 83605; 83690; 83880; 84132; 84484; 85025; 85610; 85730; 86850; 86900; 86901; 86922; 87040; 87077; 87088; 87186; 93005; 94640; 94664; 97039; C9113; G0378; J1885; J2270; J2543; J7030; J7512; P9016; Q9967